=== PATIENT | male | born 2000 | race Caucasian/White ===

== ENCOUNTER 2022-05-21 18:42 | Emergency (ER) | payer BC, MEDICAID ==
[~2022-05-21] VITALS: Ht 177.8 cm; Wt 77.1 kg
[2022-05-21 18:42] VITALS: BP_SYST 130
[~2022-05-21 18:42] MED LIST: ANTIHISTAMINE OTC; albuterol; flovent; proair
--- NOTE | 2022-05-21 20:07 | NUR ---
ER Dr.Dela Arreola in triage examining patient.
[2022-05-21] MEDS ORDERED: FAMO20TA8 PO (20:18)
[2022-05-21] MEDS ORDERED: ANT30 PO (20:19)
[2022-05-21 20:29] VITALS: BP_SYST 118
--- NOTE | 2022-05-21 20:30 | NUR ---
Patient given written and verbal discharge instructions and verbalizes understanding. ER MD discussed with patient the results and treatment provided. Patient in stable condition. ID arm band removed. IV catheter removed intact and dressing applied, no active bleeding. Rx of PEPCID, MAALOX given. Patient educated on pain management and to follow up with PMD. Pain Scale . Opportunity for questions provided and answered. Medication side effect fact sheet provided.
== END 2022-05-21 20:29 | disposition home or self-care (01) ==
LOC: SED 18:42
DX: K21.9 Gastro-esophageal reflux disease without esophagitis (principal); R06.6 Hiccough; R11.10 Vomiting, unspecified; Z79.899 Other long term (current) drug therapy
CPT/HCPCS: 99283

== ENCOUNTER 2022-08-23 00:30 | Emergency (ER) | payer MEDICAID ==
[~2022-08-23] VITALS: Ht 177.8 cm; Wt 81.6 kg
[~2022-08-23 00:30] MED LIST changes: +ANT30 PO; +FAMO20TA8 PO
[2022-08-23 00:44] VITALS: BP_SYST 157
[2022-08-23] MEDS ORDERED: ONDA-8 TL (00:53)
--- NOTE | 2022-08-23 01:00 | NUR ---
PT HERE C/O N/V/D AFTER TAKING 1 TAB OF CHINACE AND 2 TABS OF MULTIVITAMIN. PER PT HE TOOK IT WITH MARIJUANA. PT DENIES FEVER. DENIES HEADACHE. PMH:DENIES PTY AAOX4, NO SOB NOTYED AND NOT IN ANY DISTRESS AT THIS TIME. PT SEEN AND EXAMINE BY DR. HOOKS.
[2022-08-23] MEDS ORDERED: ONDANSETRON 4 MG ODT TAB ONE (01:14)
[2022-08-23] MEDS ORDERED: ONDANSETRON 4 MG ODT TAB PO ONE (01:15)
[2022-08-23 01:16] VITALS: BP_SYST 157
--- NOTE | 2022-08-23 01:21 | NUR ---
DC PT HOME AAOX4, NO SOB NOTED AND NOT IN ANY DISTRESS. DC INSTRUCTION AND PRESCRIPTION WERE GIVEN TO PT AND HE VERBALIZED UNDERSTANDING
== END 2022-08-23 01:16 | disposition home or self-care (01) ==
LOC: SED 00:30
DX: R19.7 Diarrhea, unspecified (principal); R11.2 Nausea with vomiting, unspecified; R10.9 Unspecified abdominal pain; J45.909 Unspecified asthma, uncomplicated; Z79.899 Other long term (current) drug therapy
CPT/HCPCS: 99283; Q0162